=== PATIENT | female | born 1975 | race Caucasian/White ===

== ENCOUNTER 2019-06-14 23:03 | Emergency (ER) | payer OTHER ==
[~2019-06-14] VITALS: Ht 162.6 cm; Wt 93.9 kg
[~2019-06-14 23:03] MED LIST: ALBU90OI INH; AMOX500 PO; HYDACE5 PO; IBUP400 PO; PRED20 PO
[2019-06-14] MEDS ORDERED: PREG75 PO (23:19)
[2019-06-14] MEDS ORDERED: SERT25 PO (23:20)
[2019-06-14] MEDS ORDERED: MONT10T (23:20)
== END 2019-06-15 00:38 | disposition home or self-care (01) ==
LOC: ER 23:03
DX: S62.101A Fracture of unspecified carpal bone, right wrist, initial encounter for closed fracture (principal); J45.909 Unspecified asthma, uncomplicated; M54.9 Dorsalgia, unspecified; G89.29 Other chronic pain; Z88.5 Allergy status to narcotic agent; Z91.040 Latex allergy status; Z79.899 Other long term (current) drug therapy; W19.XXXA Unspecified fall, initial encounter
CPT/HCPCS: 73110; 99283-25; A9270

== ENCOUNTER → 2022-01-10 | Outpatient (CLI) | payer OTHER ==
[~2022-01-10] MED LIST changes: +MONT10T; +PREG75 PO; +SERT25 PO
== END ==
LOC: LAB SHORT 16:09 → LAB 16:09
DX: N39.0 Urinary tract infection, site not specified (principal)
CPT/HCPCS: 87077; 87086; 87186